=== PATIENT | female | born 1990 | race Two or more races ===

== ENCOUNTER 2021-12-03 13:51 | Emergency (ER) | payer OTHER ==
[~2021-12-03] VITALS: Ht 152.4 cm; Wt 59.1 kg
[2021-12-03] MEDS ORDERED: MECLIZINE HCL 25 MG TABLET PO ONE (14:30)
[2021-12-03] MEDS ORDERED: ACETAMINOPHEN 500 MG TABLET PO ONE (14:30)
[2021-12-03 14:39] LABS: BASOPHILS % (AUTO) 0.3 % (0.0-2.0); EOSINOPHILS % (AUTO) 1.7 % (1.0-6.0); HEMATOCRIT 42.6 % (36-46); HEMOGLOBIN 14.3 g/dL (12.0-16.0); LYMPHOCYTES # (AUTO) 1.7 K/uL (1.0-4.8); LYMPHOCYTES % (AUTO) 31.6 % (22.0-44.0); MEAN CORPUSCULAR HEMOGLOBIN 29.1 pg (26.0-34.0); MEAN CORPUSCULAR HGB CONC 33.5 G/dL (31.0-37.0); MEAN CORPUSCULAR VOLUME 87 fL (80-100); MONOCYTES # (AUTO) 0.4 K/uL (0.1-1.0); NEUTROPHILS # (AUTO) 3.3 K/uL (1.8-7.7); NEUTROPHILS % (AUTO) 59.4 % (40.0-70.0); PLATELET COUNT (AUTO) 225 K/uL (150-450); RED CELL DISTRIBUTION WIDTH 13.3 % (11.5-14.5)
[2021-12-03 14:46] LABS: ANION GAP 6 mmol/L (8-16); CALCIUM, TOTAL 9.6 mg/dL (8.8-10.5); CARBON DIOXIDE 31 mmol/L (22-29); CHLORIDE 104 mmol/L (98-107); CREATININE 0.56 mg/dL (0.60-1.30); GLUCOSE,RANDOM 91 mg/dL (70-110); POTASSIUM 4.4 mmol/L (3.5-5.1); SODIUM SERUM 141 mmol/L (136-145); UREA NITROGEN, BLOOD 9 mg/dL (7-18)
[2021-12-03 14:48] LABS: GLOMERULAR FILTR. RATE CALC > 60 mL/min (>60)
[2021-12-03 14:52] LABS: ALANINE AMINOTRANSFERASE 19 U/L (12-78); ALKALINE PHOSPHATASE 71 U/L (46-116); ASPARTATE AMINOTRANSFERASE 7 U/L (15-37); BILIRUBIN,TOTAL 0.3 mg/dL (0.1-1.0); TOTAL PROTEIN, SERUM 7.7 g/dL (6.4-8.2)
[2021-12-03] MEDS ORDERED: LORA-1000 PO (16:35)
[2021-12-03] MEDS ORDERED: ACET-66 PO (16:35)
[2021-12-03] MEDS ORDERED: MECL-134 PO (16:35)
[2021-12-03] MEDS ORDERED: IBUP-1554 PO (16:35)
[2021-12-03 16:42] VITALS: BP 114/68
== END 2021-12-03 16:45 | disposition home or self-care (01) ==
LOC: EMS 14:01
DX: R42 Dizziness and giddiness (principal); G47.00 Insomnia, unspecified; F41.9 Anxiety disorder, unspecified; B35.0 Tinea barbae and tinea capitis; R11.0 Nausea; R53.1 Weakness
CPT/HCPCS: 80053; 84703; 85025; 93005; 99284